=== PATIENT | male | born 1995 | race African-American/Black ===

== ENCOUNTER 2017-04-14 20:29 | Emergency (ER) | payer SELFPAY ==
[~2017-04-14] VITALS: Ht 185.4 cm; Wt 127.0 kg
[2017-04-14] MEDS ORDERED: [UNRECOGNIZED DRUG - OTHER] (20:52)
[2017-04-14] MEDS ORDERED: PROMETHAZINE-C118 M1 ORAL (21:22)
[2017-04-14 21:50] VITALS: BP 107/68
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
== END 2017-04-14 21:30 | disposition home or self-care (01) ==
LOC: EMR 21:17
DX: Z76.0 Encounter for issue of repeat prescription (principal); M54.5 Low back pain; G89.29 Other chronic pain
CPT/HCPCS: 99283